=== PATIENT | male | born 1970 | race Caucasian/White ===

== ENCOUNTER 2023-06-13 17:26 | Emergency (ER) | payer BC, SELFPAY ==
[2023-06-13 17:29] VITALS: BP 155/101
[2023-06-13 18:52] VITALS: BP 161/103
[2023-06-13 20:00] VITALS: BP 159/101
[2023-06-13 20:11] LABS: % Basophils 0.7 % (0-2); % Eosinophils 0.7 % (0-6); % Immature Granulocytes 0.3 % (0-0.5); % Lymphocytes 36.6 % (20.5-51.1); % Monocytes 8.4 % (1.7-9.3); % Neutrophils 53.3 % (42.2-75.2); Absolute Basophils 0.1 10^3/uL (0-0.2); Absolute Eosinophils 0.1 10^3/uL (0-0.7); Absolute Lymphocytes 2.7 10^3/uL (1.2-3.4); Absolute Monocytes 0.6 10^3/uL (0.1-0.6); Absolute Neutrophils 3.9 10^3/uL (1.4-6.5); Hematocrit 42.6 % (39.0-52.0); Hemoglobin 15.5 g/dL (13.0-18.0); Mean Corp Hgb Conc. 36.4 g/dL (33.0-37.0); Mean Corpuscular Hgb 31.8 pg (27.0-31.0); Mean Corpuscular Volume 87.3 fL (80.0-94.0); Nucleated Red Blood Cells % 0 % (-); Platelet Count 292 10^3/uL (130-400); Red Blood Cell Count 4.88 10^6/uL (4.70-6.10); Red Cell Dist. Width 12.6 % (11.5-14.5); White Blood Cell Count 7.3 10^3/uL (4.8-10.8)
--- NOTE | 2023-06-13 20:12 | ED.GENMED ---
History of Present Illness
General
Chief Complaint: Dizziness
Source: patient
Exam Limitations: none
Time Seen by Provider: 06/13/23 18:16
Nursing documentation reviewed up to this point in time: agreed with
Travel History
Have you had any contact with someone who has COVID-19?: No
Do you have any symptoms of coronavirus? Fever > 100 degrees, chills, cough, shortness of breath, sore throat, loss of taste or smell, muscle aches, or headache?: No
History of Present Illness
History of Present Illness:
Patient is a 52-year-old man who reports that he experienced a sense of severe fatigue and dizziness earlier today. Patient reports that his symptoms are now much improved. He denies any headache or vision changes. He denies fever, cough, nasal
congestion, rash, headache, chest pain and shortness of breath. Patient admits to dealing with insomnia for the last 3 months and reports that his doctor just started him on Lexapro. He reports he took the first dose of it this morning, which was
5 mg. He is concerned that this could have caused his feelings of fatigue and dizziness. Patient also reports that he gets panic attacks from time to time so is not sure if he had a panic attack, however, he denied feeling short of breath or
having any chest pain.
Past History
Past History
ED Past Medical History: Asthma, HTN, Psychiatric (Anxiety) and Other (Glaucoma)
ED Past Surgical History: Other
Patient has exhibited threatening behavior?: No
Social History
Tobacco: Other
Alcohol: Other
Drug: None
Personal:
Living: with family
Employment: Employed
Family History
Family History: CAD (AMI- father)
Review of Systems
Review of Systems
Allergies reviewed?: Yes
All Other Systems: ROS reviewed and negative except as documented in HPI and ROS
Constitutional: Reports fatigue
EENT: Reports no symptoms
Respiratory: Reports no symptoms
Cardiac: Reports no symptoms
ABD/GI: Reports no symptoms
: Reports no symptoms
Musculoskeletal: Reports no symptoms
Skin: Reports no symptoms
Neurological: Reports dizzy
Endocrine: Reports no symptoms
Hematologic/Lymphatic: Reports no symptoms
Psychiatric: Reports no symptoms
Phy Exam
Physical Exam
Physical Exam:
Physical Exam
General: no apparent distress, not acutely ill, appears anxious. Walking around room steadily
Neck: supple. no meningeal signs. normal psoterior pharynx
Heart: s1/s2 regular rate and rhythm, no murmur. equal radial pulses.
Lungs: no acute respiratory distress. clear bilaterally
Abdomen: normal bowel sounds. not tender. no CVAT
Neuro: alert and orientedx3. no focal neurological deficits, steady gait. Normal finger-nose. Extraocular muscles intact. Cranial nerves equal and symmetric bilaterally. Normal [id number].
Skin: no rash
Psychiatric: well kept. interactive and cooperative
Extremities: no edema. no calf tenderness. negative homans. good distal pulses
Course
Orders/Labs/Results
Orders:
Orders
06/13/23 17:31
Electrocardiogram (*1) Urgent
Reason for Study: Vertigo / Dizzy
EKG- Treatment ONCE
06/13/23 20:00
Complete Blood Count/With Diff Urgent
Comprehensive Metabolic Panel Urgent
Troponin I Urgent
Abnormal Lab Results
06/13/23
20:00
MCH 31.8 H pg
(27.0-31.0)
Carbon Dioxide 21 L mmol/L
(22-30)
Calcium 10.3 H mg/dl
(8.4-10.2)
ALT 79 H U/L
(0-50)
06/13/23 20:00
06/13/23 20:00
Vital Signs
Initial and Last Documented VS:
Initial Vital Signs
Temp Pulse Resp BP Pulse Ox
98.9 F 80 16 155/101 98
06/13/23 17:29 06/13/23 17:29 06/13/23 17:29 06/13/23 17:29 06/13/23 17:29
Last Documented Vital Signs
Temp Pulse Resp BP Pulse Ox
98.9 F 69 15 159/101 98
06/13/23 17:29 06/13/23 20:00 06/13/23 20:00 06/13/23 20:00 06/13/23 20:00
MDM/Problems Addressed
Differential Diagnosis Includes:
Dehydration, anxiety, TIA
MDM/Problems Addressed:
Patient presents with acute dizziness that is now much better and a feeling of anxiety and fatigue
Chronic conditions affecting care:
Given patient's history of hypertension, he could be at increased risk of stroke
Chronic conditions affecting care: HTN
Acute Exacerbation and/or Progression of Chronic Illness:
Patient is acutely hypertensive but appears extremely anxious and tells me he is always hypertensive when seeing doctors
Acute Exacerbation and/or Progression of Chronic Illness: HTN
*Critical Care Note
Total Time (30-74mins, 75-104mins- exclusive of procedures): Not Applicable
Update Note
Update Note:
Pt is completely neurologically intact and walk around steadily. It is doubtful his symptoms represent a TIA or CVA. Patient has no fever, cough or nasal congestion to suggest flu or COVID. Patient is now telling me that he believes he is having
severe anxiety and this is a result of an anxiety attack. However, patient reports he has social support at home and is not suicidal. Patient encouraged to follow-up with his doctor.
ED Attending Note
-
Portions of this chart may have been created with voice recognition software.� Occasional wrong word or��sound alike� substitutions may have occurred due to the inherent limitations of voice recognition software.
Discharge Plan
Departure
Patient Disposition: Home (Routine Discharge)
Date of Disposition: 06/13/23
Time of Disposition: 20:53
Patient with high blood pressure during this ER visit?: Yes
Condition: Good
Covid-19: Not Applicable
Discharge Problem:
Dizziness
Instructions: Dizziness, BLOOD PRESSURE
Referrals:
Vitaliy Rivers MD [Family Provider] -
Activity Restrictions/Additional Instructions:
Follow-up within 3 to 5 days to have your blood pressure rechecked by your doctor. You should also discuss getting a sleep study with your doctor
Interventions
Interventions:
*Risk Screen - Suicide Last Done: 06/13/23 18:53
*General Assessment Last Done: 06/13/23 18:53
*Neglect/Abuse Screening Last Done: 06/13/23 18:53
ED- Fall Risk Assessment Last Done: 06/13/23 18:53
*ED COVID-19 Vaccine History Last Done: 06/13/23 17:29
ED- Neurological Assessment Last Done: 06/13/23 18:53
ED- Cardiac Assessment Last Done: 06/13/23 18:55
ED Swallowing Screen Last Done: 06/13/23 18:53
[2023-06-13 20:23] LABS: ALT (SGPT) 79 U/L (0-50); AST (SGOT) 49 U/L (17-59); Albumin 4.7 g/dl (3.5-5.0); Alkaline Phosphatase 87 U/L (38-126); Blood Urea Nitrogen 12 mg/dl (9-20); Calcium 10.3 mg/dl (8.4-10.2); Carbon Dioxide 21 mmol/L (22-30); Chloride 106 mmol/L (98-107); Estimated Creatinine Clearance 119 ml/min; Glucose 99 mg/dl (70-99); Potassium 3.6 mmol/L (3.5-5.1); Sodium 137 mmol/L (135-145); Total Bilirubin 0.7 mg/dl (0.2-1.3); Total Protein 7.6 g/dl (6.3-8.2); eGFR > 60.00
[2023-06-13 20:30] VITALS: BP 147/99
[2023-06-13 20:47] LABS: Troponin I < 0.012 ng/ml
[2023-06-13 21:00] VITALS: BP 163/103
[2023-06-13 21:30] VITALS: BP 150/94
== END 2023-06-13 23:03 | disposition home or self-care (01) ==
LOC: EMR 17:26
PROVIDERS: EMERGENCY PHYSICIAN Emergency Medicine; FAMILY PHYSICIAN Internal Medicine
DX: R42 Dizziness and giddiness (principal); R53.83 Other fatigue; I10 Essential (primary) hypertension
CPT/HCPCS: 99284; 80053; 84484; 85025; 93005